=== PATIENT | female | born 1965 | race Two or more races ===

== ENCOUNTER 2019-10-03 19:17 | Emergency (ER) | payer MEDICAID ==
[2019-10-03] MEDS ORDERED: Acetaminophen/oxyCODONE 325-5 MG Tab PO ONE (22:04)
[2019-10-03] MEDS ORDERED: Ibuprofen 600 MG Tab PO ONE (22:04)
[2019-10-03] MEDS ORDERED: Clindamycin HCl 150 MG Cap PO ONE (22:05)
--- NOTE | 2019-10-03 22:08 | EDM.PDOC ---
ED HPI GENERAL MEDICAL PROBLEM - General Chief Complaint: ENT Problem Stated Complaint: TOOTH PAIN Time Seen by Provider: 10/03/19 21:40 Source of Information: Reports: Patient History Limitations: Reports: No Limitations - History of Present Illness INITIAL COMMENTS - FREE TEXT/NARRATIVE: 84-year-old female presents to the ED with a dental infection right upper maxilla. Pain is been present for about 3 days. She has numerous dental caries. This tooth has become infected once in the past. She believes she was on Augmentin twice daily for this. Current pain is constant throbbing and interfering with her ability to sleep and to eat. Very minimal relief with Tylenol and Motrin. Of note blood pressure is elevated at 197/87 due to pain I believe. Onset: Gradual Onset Date: 09/29/19 Duration: Day(s):, Getting Worse Location: Reports: Face (Till infection right upper maxilla.) Quality: Reports: Ache, Throbbing, Other Severity: Severe (Constant throbbing pain) Improves with: Reports: None ( at a 10) Worsens with: Reports: None Context: Reports: Other (On multiple dental caries with previous dental infection.). Denies: Activity, Exercise, Lifting, Sick Contact, Trauma Associated Symptoms: Reports: Loss of Appetite, Other (Right hemifacial swelling starting this morning). 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, NSAIDS (Motrin) Right Upper Tooth/Teeth Pain Score (Numeric/FACES): 10 - Related Data Allergies Allergy/AdvReac Type Severity Reaction Status Date / Time No Known Allergies Allergy Verified 10/03/19 20:58 Home Meds: Home Meds Clindamycin HCl 300 mg PO TID #24 capsule 10/03/19 [Rx] Furosemide [Lasix] 0 mg PO DAILY 10/03/19 [History] lisinopriL [Lisinopril] 20 mg PO DAILY 10/03/19 [History] oxyCODONE HCl/Acetaminophen [Percocet 5-325 mg Tablet] 1 - 2 each PO Q4H PRN # 16 tablet 10/03/19 [Rx] Past Medical History HEENT History: Reports: Other (See Below) Other HEENT History: Dental Caries Cardiovascular History: Reports: Hypertension Respiratory History: Reports: None 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: Musculoskeletal History: Reports: None Neurological History: Reports: None Psychiatric History: Reports: Anxiety Endocrine/Metabolic History: Reports: Obesity/BMI 30+ Hematologic History: Reports: None Immunologic History: Reports: None Oncologic (Cancer) History: Reports: None Dermatologic History: Reports: None - Infectious Disease History Infectious Disease History: Reports: None - Past Surgical History GI Surgical History: Reports: Cholecystectomy Female Surgical History: Reports: Hysterectomy Social & Family History - Tobacco Use Smoking Status *Q: Never Smoker - Caffeine Use Caffeine Use: Reports: Soda - Recreational Drug Use Recreational Drug Use: No - Living Situation & Occupation Living situation: Reports: Occupation: Unemployed ED ROS ENT - Review of Systems Review Of Systems: See Below Constitutional: Reports: Fatigue, Decreased Appetite (Not sleeping). Denies: Fever, Chills, Malaise HEENT: Reports: Dental Pain (Upper maxillary pain with referred pain up below her right eye right facial cheek over the maxillary sinus and some feeling of pain in her upper neck and towards her right ear.), Ear Pain (Side) Respiratory: Reports: No Symptoms Cardiovascular: Reports: Chest Pain, Blood Pressure Problem (Complains of pressure in her upper anterior chest. She is concerned about her blood pressure. Hypertension. Blood pressure is elevated 179/87 at this time.). Denies: Claudication ( Patient reassured it will come down once her pain is controlled.), Dyspnea on Exertion, Lightheadedness, Orthopnea Endocrine: Reports: No Symptoms GI/Abdominal: Reports: Decreased Appetite, Nausea : Reports: No Symptoms (The intensity of the pain) Musculoskeletal: Reports: No Symptoms Skin: Reports: Erythema Neurological: Reports: No Symptoms Psychiatric: Reports: No Symptoms Hematologic/Lymphatic: Reports: No Symptoms Immunologic: Reports: No Symptoms ED EXAM, ENT - Physical Exam Exam: See Below Exam Limited By: No Limitations General Appearance: Alert, WD/WN, Anxious, Moderate Distress, Other ( Temperature is 36.8. Heart rate is 66 in sinus respiratory to 16 O2 sats 96% room air BP mildly elevated 179/87. Patient has chronic hypertension problem.) Eye Exam: Bilateral Eye: Normal Inspection Ears: Normal TMs Nose: Normal Inspection, Normal Mucousa Mouth/Throat: Normal Gums (Of the gingiva around the second and first upper bicuspid teeth.), Normal Lips, Normal Oropharynx, Dental Abcess (Patient has a gingiva inflammation erythema over her first bicuspid tooth right upper maxilla. The second bicuspid tooth has a fractured crown posteriorly. No abscess is evident that would benefit from drainage.), Dental Tenderness (Upper first molar tooth.). No: Normal Teeth (Numerous dental caries are evident.), Hoarse Voice, Lip Swelling, Lip Ulcers, Peritonsillar Mass, Pharyngeal Erythema , Throat Swelling, Tongue Swelling Head: Atraumatic, Normocephalic Neck: Normal Inspection, Supple, Non-Tender, Full Range of Motion. No: Lymphadenopathy (L), Lymphadenopathy (R) Respiratory/Chest: No Respiratory Distress, Lungs Clear, Normal Breath Sounds, No Accessory Muscle Use Cardiovascular: Normal Peripheral Pulses, Regular Rate, Rhythm, No Edema, No Gallop, No Murmur, No Rub Course - Vital Signs Last Recorded V/S: Last Vital Signs Temp 36.8 C 10/03/19 20:56 Pulse 66 10/03/19 20:56 Resp 16 10/03/19 20:56 BP 179/87 H 10/03/19 20:56 Pulse Ox 96 10/03/19 20:56 - Orders/Labs/Meds Meds: Medications Discontinued Medications Generic Name Dose Route Start Last Admin Trade Name Amrit PRN Reason Stop Dose Admin Clindamycin HCl 450 mg 10/03/19 22:05 Cleocin PO 10/03/19 22:06 ONETIME ONE Ibuprofen 600 mg 10/03/19 22:04 Motrin PO 10/03/19 22:05 ONETIME ONE Oxycodone/Acetaminophen 2 tab 10/03/19 22:04 Percocet 325-5 Mg PO 10/03/19 22:05 ONETIME ONE - Radiology Interpretation Free Text/Narrative:: T4-year-old female presents to the ED with dental pain right upper maxilla. Source of pain appears to be coming from the first and second bicuspid teeth. There is secondary infection involving the right facial cheek over the maxillary sinus. Ears normal. Plan given clindamycin 450 mg in the ED tonight. Drugstore is closed. Percocet 2 tablets 5 325 mg strength by mouth for pain relief. She will continue Motrin and Aleve for pain and inflammation relief. Prescription written for Percocet 5/325 mg tablets 1 or 2 every 4-6 hours for pain relief as needed for the next 3 days. 12 tablets provided. Clindamycin 300 mg 3 times daily for the next 8 days to clear up infection. Follow-up with dentist as soon as possible. Departure - Departure Time of Disposition: 22:05 Disposition: Home, Self-Care 01 Condition: Fair Clinical Impression: Infected dental carries - Discharge Information *PRESCRIPTION DRUG MONITORING PROGRAM REVIEWED*: Not Applicable *COPY OF PRESCRIPTION DRUG MONITORING REPORT IN PATIENT ANN: Not Applicable Prescriptions: Clindamycin HCl 300 mg PO TID #24 capsule oxyCODONE HCl/Acetaminophen [Percocet 5-325 mg Tablet] 1 - 2 each PO Q4H PRN # 16 tablet PRN Reason: pain relief. Instructions: Dental Abscess, [id number] Referrals: PCP,Not In Area [Primary Care Provider] - Forms: ED Department Discharge Additional Instructions: Evaluation in the emergency room today in regards to dental infection right upper first bicuspid tooth with secondary spread of infection to the right facial cheek. Treatment is to be clindamycin 450 mg started in the ED by mouth. This will need to be followed by clindamycin 300 mg tablets 3 times daily for the next 8 days starting tomorrow morning. Continue Motrin 600 mg every 6 hours or Aleve 2 tablets every 8 hours to reduce pain and inflammation until the antibiotics become effective. This is usually at least 48 hours. Percocet tabs 5/325 mg 1 or 2 every 4-6 hours for pain not relieved by Aleve or Motrin alone. Again these tablets will likely be required for about 2-1/2 to 3 days before the pain settles down. Obviously dental care is required and I would suggest seeking out a dentist as soon as possible. Sepsis Event Note - Evaluation Sepsis Screening Result: No Definite Risk - Focused Exam Vital Signs: Vital Signs Temp Pulse Resp BP Pulse Ox 10/03/19 20:56 36.8 C 66 16 179/87 H 96 Date Exam was Performed: 10/03/19 Time Exam was Performed: 22:08
== END 2019-10-03 22:15 | disposition home or self-care (01) ==
LOC: JD.ED 19:17
DX: K02.9 Dental caries, unspecified (principal); I10 Essential (primary) hypertension; E66.9 Obesity, unspecified; Z68.36 Body mass index [BMI] 36.0-36.9, adult
CPT/HCPCS: 99282; A9270; 99283

== ENCOUNTER 2020-11-28 07:24 | Day surgery (SDC) | payer MEDICAID ==
[~2020-11-28 07:24] MED LIST: Lactated Ringers 1,000 ML IV SCH; Lidocaine 1% 4 ML ONE; Lidocaine 1%/Sod Bicarbonate in NS 8.4% 1 ML Syringe IDERM PRN; Midazolam 1 MG/ML 2 ML SDV ONE; Propofol 200 MG/20 ML SDV ONE; Rocuronium 50 MG/5 ML Vial ONE; Sodium Chloride 0.9% 10 ML Syringe FLUSH PRN; ceFAZolin 1 GM Vial ONE; fentaNYL 250 MCG/5 ML SDV ONE
[2020-11-28] MEDS ORDERED: Lidocaine 1% with EPINEPHrine 1:100,000 10 ML MDV ONE (07:37)
[2020-11-28] MEDS ORDERED: Bupivacaine 0.5%/EPINEPHrine 1:200,000 50 ML MDV ONE (07:38)
--- NOTE | 2020-11-28 07:44 | PCM.PREANE ---
Preanesthetic Assessment - Anesthesia/Transfusion/Family Hx Anesthesia History: Prior Anesthesia Without Reaction Family History of Anesthesia Reaction: No Transfusion History: No Prior Transfusion(s) - Review of Systems General: No Symptoms Pulmonary: No Symptoms Cardiovascular: No Symptoms Gastrointestinal: No Symptoms Neurological: No Symptoms Other: Reports: None - Physical Assessment NPO Status Date: 11/27/20 NPO Status Time: 17:00 ASA Class: 2 Mental Status: Alert & Oriented x3 Airway Class: Mallampati = 2 Dentition: Reports: Broken Tooth/Teeth (back bottom left) ROM/Head Extension: Full Lungs: Clear to Auscultation, Normal Respiratory Effort Cardiovascular: Regular Rate, Regular Rhythm - Allergies Allergies/Adverse Reactions: Allergies Allergy/AdvReac Type Severity Reaction Status Date / Time cat dander Allergy Other Verified 11/27/20 15:43 grass pollen Allergy Other Verified 11/27/20 15:43 - Anesthesia Plan Beta Evans: Metoprolol Med Last Dose Date: 11/28/20 Med Last Dose Time: 06:20 - Acknowledgements Anesthesia Type Planned: General Anesthesia Pt an Appropriate Candidate for the Planned Anesthesia: Yes Alternatives and Risks of Anesthesia Discussed w Pt/Guardian: Yes Pt/Guardian Understands and Agrees with Anesthesia Plan: Yes PreAnesthesia Questionnaire HEENT History: Reports: Other (See Below) Other HEENT History: Dental Caries, sinusitis Cardiovascular History: Reports: High Cholesterol, Hypertension, Other (See Below) Other Cardiovascular History: palpitations Respiratory History: Reports: Sleep Apnea, Other (See Below) Other Respiratory History: snoring, CPAP Gastrointestinal History: Reports: Other (See Below) Other Gastrointestinal History: dysphagia Genitourinary History: Reports: None 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: , Other (See Below) Other OB/BYN History: postmenopausal, vaginal dryness Musculoskeletal History: Reports: Other (See Below) Other Musculoskeletal History: bilateral carpal tunnel syndrome Neurological History: Reports: None Psychiatric History: Reports: Anxiety Endocrine/Metabolic History: Reports: Obesity/BMI 30+ Hematologic History: Reports: None Immunologic History: Reports: None Oncologic (Cancer) History: Reports: None Dermatologic History: Reports: Other (See Below) Other Dermatologic History: hidradenitis supprurativa - Infectious Disease History Infectious Disease History: Reports: None - Past Surgical History Head Surgeries/Procedures: Reports: None Cardiovascular Surgical History: Reports: None Respiratory Surgical History: Reports: None GI Surgical History: Reports: Cholecystectomy, Colonoscopy, EGD Female Surgical History: Reports: Hysterectomy Male Surgical History: Reports: None Endocrine Surgical History: Reports: None Neurological Surgical History: Reports: None Musculoskeletal Surgical History: Reports: None Oncologic Surgical History: Reports: None Dermatological Surgical History: Reports: None - SUBSTANCE USE Tobacco Use Status *Q: Never Tobacco User Recreational Drug Use History: No - HOME MEDS Home Medications: Home Meds Clindamycin Phosphate [Cleocin T 1% Gel] 1 dose TOP BID 11/27/20 [History] Metoprolol Succinate 25 mg PO DAILY 11/27/20 [History] Omeprazole Magnesium [Prilosec Otc] 20 mg PO DAILY 11/27/20 [History] estradioL [Estrace 0.01% Vaginal Crm] 1 dose VAG ASDIRECTED PRN 11/27/20 [History] hydroCHLOROthiazide [Hydrochlorothiazide] 25 mg PO DAILY 11/27/20 [History] lisinopriL [Lisinopril] 20 mg PO DAILY 11/27/20 [History] - CURRENT (IN HOUSE) MEDS Current Meds: Current Medications Lactated Ringer's (Ringers, Lactated) 1,000 mls @ 125 mls/hr IV ASDIRECTED NADJA Stop: 11/28/20 23:00 Lidocaine/Sodium Bicarbonate (Lidocaine 1%/Sod Bicarbonate In Ns 8.4% 1 Ml Syringe) 0.25 ml IDERM ONETIME PRN PRN Reason: Prior to IV Start Stop: 11/28/20 18:00 Sodium Chloride (Sodium Chloride 0.9% 10 Ml Syringe) 10 ml FLUSH ASDIRECTED PRN PRN Reason: Keep Vein Open Stop: 11/28/20 18:00 Discontinued Medications Cefazolin Sodium (Cefazolin 1 Gm Vial) Confirm Administered Dose 2 gm .ROUTE .STK-MED ONE Stop: 11/28/20 07:07 Fentanyl (Fentanyl 250 Mcg/5 Ml Sdv) Confirm Administered Dose 250 mcg .ROUTE .STK-MED ONE Stop: 11/28/20 06:56 Lidocaine HCl (Xylocaine-Mpf 1%) Confirm Administered Dose 4 mls @ as directed .ROUTE .STK-MED ONE Stop: 11/28/20 06:56 Midazolam HCl (Midazolam 1 Mg/Ml 2 Ml Sdv) Confirm Administered Dose 2 mg .ROUTE .STK-MED ONE Stop: 11/28/20 06:56 Propofol (Propofol 200 Mg/20 Ml Sdv) Confirm Administered Dose 200 mg .ROUTE .STK-MED ONE Stop: 11/28/20 06:55 Rocuronium [place] (Rocuronium 50 Mg/5 Ml Vial) Confirm Administered Dose 50 mg .ROUTE .STK-MED ONE Stop: 11/28/20 06:56
[2020-11-28] MEDS ORDERED: Acetaminophen 325 MG Tab PO ONE ×2 (07:47→08:00)
[2020-11-28] MEDS ORDERED: Gabapentin 300 MG Cap PO ONE (08:00)
[2020-11-28] MEDS ORDERED: Lactated Ringers 1,000 ML ONE (08:34)
[2020-11-28] MEDS ORDERED: diphenhydrAMINE 50 MG/ML SDV IVPUSH PRN (08:38)
[2020-11-28] MEDS ORDERED: Ondansetron 4 MG/2 ML SDV IVPUSH PRN (08:38)
[2020-11-28] MEDS ORDERED: fentaNYL 100 MCG/2 ML SDV IVPUSH PRN (08:38)
[2020-11-28] MEDS ORDERED: HYDROmorphone 0.5 MG/0.5 ML Syringe IVPUSH PRN (08:38)
[2020-11-28] MEDS ORDERED: Pantoprazole 40 MG Tab.CR PO SCH (09:00)
[2020-11-28] MEDS ORDERED: HYDROmorphone 0.5 MG/0.5 ML Syringe ONE ×2 (09:23→09:37)
[2020-11-28] MEDS ORDERED: Ondansetron 4 MG/2 ML SDV ONE (09:38)
[2020-11-28] MEDS ORDERED: fentaNYL 100 MCG/2 ML SDV ONE (09:46)
[2020-11-28] MEDS ORDERED: Ketorolac 30 MG/ML SDV ONE (10:08)
--- NOTE | 2020-11-28 10:26 | PCM.OPNOTE ---
- General Post-Op/Procedure Note Date of Surgery/Procedure: 11/28/20 Operative Procedure(s): Laparoscopic ventral incisional hernia repair with mesh Findings: Epigastric incisional hernia in the area of her previous open cholecystectomy Pre Op Diagnosis: Ventral incisional hernia Post-Op Diagnosis: same Anesthesia Technique: General ET Tube, Local Primary Surgeon: Maria E Brothers Anesthesia Provider: Isabel Quiñones Pathology: none Fluid Replacement, Intraop: 1,700 Output, Urine Amount: 0 EBL in mLs: 5 Complications: none apparent Condition: Good
--- NOTE | 2020-11-28 10:28 | PCM.PRNOTE ---
- Free Text/Narrative Note: Operative Report Date of surgery: November Preoperative diagnosis: Ventral incisional hernia Postoperative diagnosis: same Surgeon: Dr. Maria E Brothers Anesthesia: General ET with local Aircraft Engine Specialist: Isabel Quiñones CRNA Estimated blood loss: 5 mL IV fluids: 1700 mL Urine output: None Drains and lines: None Indication for the procedure: The patient is a 55-year-old lady who presented to my office with complaint of abdominal pain and bulge in the epigastric area. The patient reports having a previous open cholecystectomy many years ago. She underwent preoperative CT scanning, which revealed an incisional ventral hernia. I discussed a procedure of a laparoscopic ventral incisional hernia repair with mesh with the patient. Risks of infection, bleeding and mesh complication was reviewed, and written consent was obtained Description of the procedure: The patient presented to the outpatient holding area on the day for procedure history and physical were verified and the consent was present and on the chart. She was taken back to the operating room and placed in supine position on the operating table. SCD boots were placed and functional prior to the start of the procedure. The patient received preoperative antibiotics as per SCIP protocol. The patient had successful induction of general anesthesia and was intubated without difficulty. The patient's left arm was tucked and the pressure points were padded. The patient was prepped and draped in standard surgical fashion and a timeout was performed. The abdomen was draped with Ioban to begin. A 5 mm incision was then made in the left upper quadrant just under the subcostal margin. A 5 mm port was then inserted into the abdomen with the Visiport technique. The abdomen was insufflated to 15 mmHg. There was no evidence of any injury in the area where we had entered the abdomen. A TAP block was then performed with mixed 1% lidocaine with epinephrine and 0.5% bupivacaine with epinephrine. We then proceeded to survey the area of hernia. A 5 mm port was inserted in the left lower quadrant. We proceeded to lyse the adhesions to the right upper quadrant with the Ligasure. The epigastrium was evaluated and the falciform ligament was removed to evaluate the fascia. A linear defect was noted in the epigastrium to the right of the midline, measuring approximately 7.5cm. We then used a spinal needle to size the hernia. In order to cover the area where the abdominal wall muscles were not joined, a 11.5cm circular mesh was selected. Castella-Nick suture were affixed in all 4 quadrants of the mesh. A left sided 12 mm port was then placed under direct visualization. The mesh was then soaked in saline, rolled and placed through this port into the abdomen. The mesh was then unfurled within the abdomen and the fixation site was marked with the spinal needle. A small stab incision was made in the area where we had selected. An Endo Close suture passer was then passed into the abdomen and the tails of the Castella-Nick suture were brought to the abdominal wall and secured. Care was taken to not place the mesh too high, as it was in the are of the diaphragm on the superior aspect. We then proceeded to do the same with the four remaining sutures in all four quadrants of the mesh. A SecureStrap Ethicon tacker was then used to circumferentially tack the to the abdominal wall. The 12mm port was removed and the fascia closed with an 0-Vicryl suture with the Endoclose device. The abdomen was then desufflated and the ports were removed. The stay sutures were tied down to the abdominal wall and the subcutaneous tissue was released as necessary for good closure. The incision sites were then closed with 4-0 Monocryl suture. Dermabond surgical glue were used to cover the port sites and stab incisions. The patient tolerated the procedure well and was transported to the PACU in stable condition. All sponge and needle counts correct. The Jacob catheter was removed at the conclusion of the case Complications: None apparent. Disposition: Stable to PACU Maria E Brothers MD General Surgery
--- NOTE | 2020-11-28 10:46 | PCM.POSTAN ---
POST ANESTHESIA ASSESSMENT - MENTAL STATUS Mental Status: Alert, Oriented - VITAL SIGNS Vital Signs: Last Vital Signs Temp 36.7 C 11/28/20 08:02 Pulse 62 11/28/20 07:45 Resp 16 11/28/20 07:45 BP 116/64 11/28/20 07:45 Pulse Ox 96 11/28/20 07:45 - RESPIRATORY Respiratory Status: Respiratory Rate WNL, Airway Patent, O2 Saturation Stable - CARDIOVASCULAR CV Status: Pulse Rate WNL, Blood Pressure Stable - GASTROINTESTINAL GI Status: No Symptoms - PAIN Pain Score: 0 - POST OP HYDRATION Hydration Status: Adequate & Stable
[2020-11-28] MEDS ORDERED: ePHEDrine 50 MG/ML SDV IVPUSH ONE (11:02)
[2020-11-28] MEDS ORDERED: Acetaminophen/HYDROcodone 325-5 MG Tab PO SCH (11:38)
--- NOTE | 2020-11-28 11:39 | PCM48HPAN ---
Post Anesthesia Note - EVALUATION WITHIN 48HRS OF ANESTHETIC Vital Signs in Normal Range: Yes (PACU nuses did have to give 5mg Ephedrine for low BP) Patient Participated in Evaluation: Yes Respiratory Function Stable: Yes Airway Patent: Yes Cardiovascular Function Stable: Yes Hydration Status Stable: Yes Pain Control Satisfactory: Yes Nausea and Vomiting Control Satisfactory: Yes Mental Status Recovered: Yes Vital Signs: Last Vital Signs Temp 36.7 C 11/28/20 11:25 Pulse 75 11/28/20 11:25 Resp 12 11/28/20 11:25 BP 109/60 11/28/20 11:25 Pulse Ox 95 11/28/20 11:32
== END 2020-11-28 14:09 | disposition home or self-care (01) ==
LOC: JD.SDS 07:24
PROVIDERS: ATTEND Surgery
DX: K43.2 Incisional hernia without obstruction or gangrene (principal); I10 Essential (primary) hypertension; G47.33 Obstructive sleep apnea (adult) (pediatric); E78.00 Pure hypercholesterolemia, unspecified; E66.9 Obesity, unspecified; Z68.36 Body mass index [BMI] 36.0-36.9, adult; Z91.09 Other allergy status, other than to drugs and biological substances; Z79.899 Other long term (current) drug therapy; Z98.890 Other specified postprocedural states
CPT/HCPCS: 36415; 49654; 80048; 85025; A9270; J0690; J1170; J1885; J2250; J2405; J2704; J3010; J3490; J7120; 00790; C1781

== ENCOUNTER 2022-01-18 21:59 | Emergency (ER) | payer BC, MEDICAID ==
[2022-01-18] MEDS ORDERED: Famotidine 20 MG Tab PO ONE (22:15)
[2022-01-18] MEDS ORDERED: Ondansetron 4 MG Tab.DIS PO ONE (22:15)
[2022-01-18 22:51] LABS: ESTIMATED GFR > 60 mL/min (>60)
[2022-01-18] MEDS ORDERED: Potassium Chloride 20 MEQ Tab.ER PO ONE (23:08)
== END 2022-01-18 23:15 | disposition home or self-care (01) ==
LOC: JD.ED 21:59
DX: R10.30 Lower abdominal pain, unspecified (principal); R19.7 Diarrhea, unspecified; E78.00 Pure hypercholesterolemia, unspecified; I10 Essential (primary) hypertension; E66.9 Obesity, unspecified; Z68.30 Body mass index [BMI] 30.0-30.9, adult; Z91.09 Other allergy status, other than to drugs and biological substances; Z91.048 Other nonmedicinal substance allergy status; Z79.899 Other long term (current) drug therapy
CPT/HCPCS: 36415; 80053; 83690; 85025; 99284; A9270; 99283

== ENCOUNTER 2022-04-25 18:24 | Emergency (ER) | payer BC | END 2022-04-25 19:15 | LOC: JD.ED 18:24 | DX: Z53.21 Procedure and treatment not carried out due to patient leaving prior to being seen by health care provider (principal) ==

== ENCOUNTER 2022-11-15 21:13 | Emergency (ER) | payer MEDICAID ==
[2022-11-15] MEDS: Ketorolac 30 MG/ML SDV IM ONE (22:11)
[2022-11-15] MEDS: Ondansetron 4 MG Tab.DIS PO ONE (22:16)
[2022-11-15 22:53] LABS: CORONAVIRUS COVID-19 NAA POSITIVE (NEGATIVE)
== END 2022-11-15 23:20 | disposition home or self-care (01) ==
LOC: JD.ED 21:13
DX: U07.1 COVID-19 (principal); I10 Essential (primary) hypertension; E66.9 Obesity, unspecified; Z91.09 Other allergy status, other than to drugs and biological substances; Z91.048 Other nonmedicinal substance allergy status; Z68.28 Body mass index [BMI] 28.0-28.9, adult; Z79.899 Other long term (current) drug therapy
CPT/HCPCS: 0240U; 71045; 71045-26; 96372; 99283; 99285; A9270-GY; J1885

== ENCOUNTER 2022-12-14 04:56 | Emergency (ER) | payer BC ==
[2022-12-14] MEDS ORDERED: LORazepam 0.5 MG Tab PO ONE (05:33)
[2022-12-14 05:53] LABS: BASOPHILS ABSOLUTE AUTO 0.03 K/mm3 (0.01-0.08); BASOPHILS PERCENT AUTO 0.5 % (0.1-1.2); EOSINOPHILS PERCENT AUTO 3.1 (0.7-5.8); HEMATOCRIT 43.8 % (34.1-44.9); HEMOGLOBIN 14.5 gm/dl (11.2-15.7); IMMATURE GRAN ABSOLUTE AUTO 0.01 K/mm3 (0.00-0.10); IMMATURE GRAN PERCENT AUTO 0.2 % (<=1.0); LYMPHOCYTES ABSOLUTE AUTO 1.62 K/mm3 (1.18-3.74); MEAN CORPUSCULAR HEMOGLOBIN 29.1 pg (25.6-32.2); MEAN CORPUSCULAR HGB CONC 33.1 g/dl (32.2-35.5); MEAN CORPUSCULAR VOLUME 87.8 fl (79.4-94.8); MEAN PLATELET VOLUME 9.3 fl (9.4-12.3); MONOCYTES ABSOLUTE AUTO 0.42 K/mm3 (0.24-0.36); MONOCYTES PERCENT AUTO 6.5 % (4.7-12.5); NEUTROPHILS PERCENT AUTO 64.7 % (34.0-71.1); PLATELET COUNT,PLT 268 K/mm3 (182-369); RED BLOOD CELL COUNT 4.99 M/mm3 (3.98-5.22); WHITE BLOOD CELL COUNT,WBC 6.48 K/mm3 (3.98-10.04)
[2022-12-14 06:15] LABS: A/G RATIO 0.9 (1-2); ALBUMIN 3.6 g/dl (3.4-5.0); ANION GAP 12.6 (5-15); BILIRUBIN TOTAL 0.5 mg/dL (0.2-1.0); CALCIUM 8.9 mg/dL (8.5-10.1); CREATININE 0.8 mg/dL (0.55-1.02); EST CRCL DRUG DOSING (CG) 57.07 mL/min; POTASSIUM,K 3.6 mEq/L (3.5-5.1); PROTEIN TOTAL,TP 7.7 g/dl (6.4-8.2)
== END 2022-12-14 07:29 | disposition home or self-care (01) ==
LOC: JD.ED 04:56
DX: R06.4 Hyperventilation (principal); F41.9 Anxiety disorder, unspecified; I10 Essential (primary) hypertension; E66.9 Obesity, unspecified; Z86.16 Personal history of COVID-19; Z91.09 Other allergy status, other than to drugs and biological substances; Z91.048 Other nonmedicinal substance allergy status; Z68.34 Body mass index [BMI] 34.0-34.9, adult
CPT/HCPCS: 36415; 80053; 83880; 84484; 85025; 85379; 99284; A9270; 99283

== ENCOUNTER 2024-05-06 09:19 | Emergency (ER) | payer BC ==
[2024-05-06 11:19] LABS: BASOPHILS PERCENT AUTO 0.4 % (0.0-1.0); EOSINOPHILS ABSOLUTE AUTO 0.2 K/mm3 (0.0-0.4); HEMATOCRIT 44.9 % (37.0-47.0); HEMOGLOBIN 15.3 gm/dl (12.0-16.0); IMMATURE GRAN ABSOLUTE AUTO 0.02 K/mm3 (0.00-0.05); IMMATURE GRAN PERCENT AUTO 0.3 % (0.0-0.4); LYMPHOCYTES PERCENT AUTO 26.7 % (24.0-44.0); MEAN CORPUSCULAR HEMOGLOBIN 29.5 pg (28.0-32.0); MEAN CORPUSCULAR HGB CONC 34.1 g/dl (32.0-36.0); MEAN CORPUSCULAR VOLUME 86.5 fl (83.0-99.0); MEAN PLATELET VOLUME 9.3 fl (9.4-12.3); MONOCYTES ABSOLUTE AUTO 0.4 K/mm3 (0.0-0.8); MONOCYTES PERCENT AUTO 5.5 % (0.0-8.0); NEUTROPHILS ABSOLUTE AUTO 4.8 K/mm3 (1.8-7.7); NEUTROPHILS PERCENT AUTO 65.1 % (41.0-71.0); PLATELET COUNT,PLT 286 K/mm3 (150-400); RED BLOOD CELL COUNT 5.19 M/mm3 (4.10-5.30); WHITE BLOOD CELL COUNT,WBC 7.39 K/mm3 (3.9-11.3)
[2024-05-06] MEDS: Ketorolac 30 MG/ML SDV IVPUSH ONE (11:34)
[2024-05-06] MEDS: HYDROmorphone 0.5 MG/0.5 ML Syringe IVPUSH ONE (11:35)
[2024-05-06] MEDS: Sodium Chloride 0.9% 10 ML Syringe FLUSH PRN (11:38)
[2024-05-06 11:43] LABS: ANION GAP 13.1 (5-15); BILIRUBIN TOTAL 0.8 mg/dL (0.2-1.0); CALCIUM 8.9 mg/dL (8.5-10.1); CREATININE 0.6 mg/dL (0.55-1.02); EST CRCL DRUG DOSING (CG) 75.2 mL/min; POTASSIUM,K 3.1 mEq/L (3.5-5.1); PROTEIN TOTAL,TP 8.1 g/dl (6.4-8.2)
== END 2024-05-06 13:00 | disposition home or self-care (01) ==
LOC: JD.ED 09:19
DX: M54.12 Radiculopathy, cervical region (principal); I10 Essential (primary) hypertension; E66.9 Obesity, unspecified; Z68.37 Body mass index [BMI] 37.0-37.9, adult; Z86.16 Personal history of COVID-19; Z90.49 Acquired absence of other specified parts of digestive tract; Z79.899 Other long term (current) drug therapy; Z91.048 Other nonmedicinal substance allergy status
CPT/HCPCS: 36415; 72125; 80053; 84484; 85025; 93005; 96374; 96375; 99284; J1170; J1885; J3490; 93010

== ENCOUNTER 2024-09-30 16:37 | Emergency (ER) | payer BC ==
[2024-09-30 17:56] LABS: BASOPHILS PERCENT AUTO 0.3 % (0.0-1.0); EOSINOPHILS ABSOLUTE AUTO 0.3 K/mm3 (0.0-0.4); EOSINOPHILS PERCENT AUTO 3.7 % (0.0-6.0); HEMATOCRIT 43.9 % (37.0-47.0); HEMOGLOBIN 14.6 gm/dl (12.0-16.0); IMMATURE GRAN ABSOLUTE AUTO 0.01 K/mm3 (0.00-0.05); IMMATURE GRAN PERCENT AUTO 0.1 % (0.0-0.4); LYMPHOCYTES ABSOLUTE AUTO 2.2 K/mm3 (1.0-4.8); LYMPHOCYTES PERCENT AUTO 33.4 % (24.0-44.0); MEAN CORPUSCULAR HEMOGLOBIN 29.3 pg (28.0-32.0); MEAN CORPUSCULAR HGB CONC 33.3 g/dl (32.0-36.0); MEAN PLATELET VOLUME 9.5 fl (9.4-12.3); MONOCYTES ABSOLUTE AUTO 0.8 K/mm3 (0.0-0.8); NEUTROPHILS ABSOLUTE AUTO 3.4 K/mm3 (1.8-7.7); NEUTROPHILS PERCENT AUTO 50.5 % (41.0-71.0); PLATELET COUNT,PLT 256 K/mm3 (150-400); RED BLOOD CELL COUNT 4.99 M/mm3 (4.10-5.30); WHITE BLOOD CELL COUNT,WBC 6.68 K/mm3 (3.9-11.3)
[2024-09-30 18:30] LABS: A/G RATIO 0.8 (1-2); ALBUMIN 3.5 g/dl (3.4-5.0); BILIRUBIN TOTAL 0.4 mg/dL (0.2-1.0); BUN/CREATININE RATIO 11.4 (14-18); CALCIUM 8.7 mg/dL (8.5-10.1); CREATININE 0.7 mg/dL (0.55-1.02); EST CRCL DRUG DOSING (CG) 63.69 mL/min; PROTEIN TOTAL,TP 7.8 g/dl (6.4-8.2); TSH 4.344 uIU/mL (0.358-3.74)
[2024-09-30 18:55] LABS: T4 FREE 0.97 ng/dL (0.76-1.46)
[2024-09-30] MEDS: Potassium Chloride 20 MEQ Tab.ER PO ONE (19:52)
== END 2024-09-30 20:00 | disposition home or self-care (01) ==
LOC: JD.ED 16:37
DX: R00.2 Palpitations (principal); I10 Essential (primary) hypertension; E78.00 Pure hypercholesterolemia, unspecified; Z86.16 Personal history of COVID-19; Z91.048 Other nonmedicinal substance allergy status; Z91.018 Allergy to other foods; Z79.899 Other long term (current) drug therapy
CPT/HCPCS: 36415; 71045; 71045-26; 80053; 84439; 84443; 84484; 85025; 93005; 93246; 99285; A9270-GY

== ENCOUNTER 2024-10-18 01:54 | Emergency (ER) | payer BC ==
[2024-10-18] MEDS: Labetalol 100 MG/20 ML MDV IVPUSH ONE ×2 (02:42→03:32)
[2024-10-18 02:48] LABS: BASOPHILS ABSOLUTE AUTO 0.1 K/mm3 (0.0-0.2); BASOPHILS PERCENT AUTO 0.5 % (0.0-1.0); EOSINOPHILS ABSOLUTE AUTO 0.2 K/mm3 (0.0-0.4); EOSINOPHILS PERCENT AUTO 1.6 % (0.0-6.0); HEMATOCRIT 48.1 % (37.0-47.0); HEMOGLOBIN 16.3 gm/dl (12.0-16.0); IMMATURE GRAN ABSOLUTE AUTO 0.04 K/mm3 (0.00-0.05); IMMATURE GRAN PERCENT AUTO 0.3 % (0.0-0.4); LYMPHOCYTES ABSOLUTE AUTO 4.1 K/mm3 (1.0-4.8); LYMPHOCYTES PERCENT AUTO 32.3 % (24.0-44.0); MEAN CORPUSCULAR HEMOGLOBIN 29.5 pg (28.0-32.0); MEAN CORPUSCULAR HGB CONC 33.9 g/dl (32.0-36.0); MEAN PLATELET VOLUME 9.6 fl (9.4-12.3); MONOCYTES ABSOLUTE AUTO 0.8 K/mm3 (0.0-0.8); MONOCYTES PERCENT AUTO 6.6 % (0.0-8.0); NEUTROPHILS ABSOLUTE AUTO 7.4 K/mm3 (1.8-7.7); NEUTROPHILS PERCENT AUTO 58.7 % (41.0-71.0); PLATELET COUNT,PLT 334 K/mm3 (150-400); RED BLOOD CELL COUNT 5.53 M/mm3 (4.10-5.30); WHITE BLOOD CELL COUNT,WBC 12.65 K/mm3 (3.9-11.3)
[2024-10-18 03:08] LABS: A/G RATIO 0.9 (1-2); ALANINE AMINOTRANSFERASE,ALT 46 U/L (14-59); ALBUMIN 3.9 g/dl (3.4-5.0); ALKALINE PHOSPHATASE 130 U/L (46-116); ANION GAP 12.7 (5-15); ASPARTATE AMNIOTRANSFERASE,AST 24 U/L (15-37); BILIRUBIN TOTAL 0.6 mg/dL (0.2-1.0); BLOOD UREA NITROGEN,BUN 14 mg/dL (7-18); BUN/CREATININE RATIO 17.5 (14-18); CALCIUM 9.2 mg/dL (8.5-10.1); CARBON DIOXIDE,CO2 28 mEq/L (21-32); CHLORIDE,CL 103 mEq/L (98-107); CREATININE 0.8 mg/dL (0.55-1.02); EST CRCL DRUG DOSING (CG) 55.73 mL/min; ESTIMATED GFR 86 mL/min (>60); GLUCOSE RANDOM 114 mg/dL (70-99); MAGNESIUM 1.8 mg/dL (1.8-2.4); POTASSIUM,K 2.7 mEq/L (3.5-5.1); PROTEIN TOTAL,TP 8.2 g/dl (6.4-8.2); SODIUM,NA 141 mEq/L (136-145)
[2024-10-18 03:27] LABS: TROPONIN I HIGH SENSITIVITY < 4 pg/mL (<=51)
[2024-10-18 03:27] LABS: BARBITURATE SCREEN,URINE NEGATIVE (CUTOFF=200); BENZODIAZEPINES SCREEN,URINE NEGATIVE (CUTOFF=150); BUPRENORPHINE SCREEN,URINE NEGATIVE (CUTOFF=10); METHADONE SCREEN, URINE NEGATIVE (CUTOFF=200); METHAMPHETAMINES SCREEN, URINE NEGATIVE (CUTOFF=500); OXYCODONE SCREEN,URINE NEGATIVE (CUT0FF=100); THC SCREEN,URINE 20 NG/ML NEGATIVE (CUTOFF=50)
[2024-10-18 03:29] LABS: AMPHETAMINES SCREEN, URINE NEGATIVE (CUTOFF=500)
[2024-10-18] MEDS: Sodium Chloride 0.9% 10 ML Syringe FLUSH PRN (03:46)
[2024-10-18] MEDS: Iopamidol 755 Mg/ML 100 ML Bottle IVPUSH ONE (03:48)
[2024-10-18] MEDS: Sodium Chloride 0.9% 100 ML IV SCH (03:48)
[2024-10-18] MEDS: Magnesium Sulfat/D5W 1GM/100ML 1 GM in Premix Bag 1 BAG IV ONE (03:54)
[2024-10-18] MEDS: Potassium Bicarbonate/Cit Ac 20 MEQ Effervescent Tab PO ONE (03:56)
[2024-10-18 06:13] LABS: A/G RATIO 0.9 (1-2); ALBUMIN 3.7 g/dl (3.4-5.0); ANION GAP 12.8 (5-15); BILIRUBIN TOTAL 0.6 mg/dL (0.2-1.0); BUN/CREATININE RATIO 17.1 (14-18); CALCIUM 8.8 mg/dL (8.5-10.1); CREATININE 0.7 mg/dL (0.55-1.02); EST CRCL DRUG DOSING (CG) 63.69 mL/min; MAGNESIUM 2.4 mg/dL (1.8-2.4); POTASSIUM,K 3.8 mEq/L (3.5-5.1); PROTEIN TOTAL,TP 7.8 g/dl (6.4-8.2)
== END 2024-10-18 07:06 | disposition home or self-care (01) ==
LOC: JD.ED 01:54
DX: E87.6 Hypokalemia (principal); E83.42 Hypomagnesemia; I10 Essential (primary) hypertension; E78.00 Pure hypercholesterolemia, unspecified; Z91.048 Other nonmedicinal substance allergy status; Z91.018 Allergy to other foods; Z79.899 Other long term (current) drug therapy; Z86.16 Personal history of COVID-19; Z90.49 Acquired absence of other specified parts of digestive tract
CPT/HCPCS: 36415; 71045; 71275; 80053; 80306; 80307; 83735; 83880; 84484; 85025; 93005; 96365; 96375; 96376; 99285; A9270; J1920; J3475; Q9967; 93010; 99284

== ENCOUNTER 2025-03-12 19:25 | Emergency (ER) | payer BC ==
[2025-03-12] MEDS ORDERED: Sodium Chloride 0.9% 10 ML Syringe FLUSH PRN (19:58)
[2025-03-12 20:28] LABS: BASOPHILS ABSOLUTE AUTO 0.0 K/mm3 (0.0-0.2); BASOPHILS PERCENT AUTO 0.4 % (0.0-1.0); EOSINOPHILS ABSOLUTE AUTO 0.2 K/mm3 (0.0-0.4); EOSINOPHILS PERCENT AUTO 2.3 % (0.0-6.0); IMMATURE GRAN ABSOLUTE AUTO 0.02 K/mm3 (0.00-0.05); IMMATURE GRAN PERCENT AUTO 0.3 % (0.0-0.4); LYMPHOCYTES ABSOLUTE AUTO 2.3 K/mm3 (1.0-4.8); LYMPHOCYTES PERCENT AUTO 29.8 % (24.0-44.0); MEAN PLATELET VOLUME 9.1 fl (9.4-12.3); MONOCYTES ABSOLUTE AUTO 0.6 K/mm3 (0.0-0.8); MONOCYTES PERCENT AUTO 7.4 % (0.0-8.0); NEUTROPHILS ABSOLUTE AUTO 4.6 K/mm3 (1.8-7.7); NEUTROPHILS PERCENT AUTO 59.8 % (41.0-71.0); NRBC ABSOLUTE 0.00 (0.00-0.02); NRBC PERCENT 0.0 % (0.0-0.2); PLATELET COUNT,PLT 271 K/mm3 (150-400); RED BLOOD CELL COUNT 4.92 M/mm3 (4.10-5.30); WHITE BLOOD CELL COUNT,WBC 7.66 K/mm3 (3.9-11.3)
[2025-03-12 21:01] LABS: A/G RATIO 0.9 (1-2); ALANINE AMINOTRANSFERASE,ALT 75.0 U/L (14-59); ASPARTATE AMNIOTRANSFERASE,AST 46.0 U/L (15-37); BILIRUBIN TOTAL 0.4 mg/dL (0.2-1.0); BLOOD UREA NITROGEN,BUN 12.0 mg/dL (7-18); CARBON DIOXIDE,CO2 28.0 mEq/L (21-32); CHLORIDE,CL 105.0 mEq/L (98-107); CREATININE 0.9 mg/dL (0.55-1.02); EST CRCL DRUG DOSING (CG) 59.55 mL/min; ESTIMATED GFR 75.0 mL/min (>60); GLUCOSE RANDOM 108.0 mg/dL (70-99); PHOSPHORUS 3.6 mg/dL (2.6-4.7); POTASSIUM,K 3.2 mEq/L (3.5-5.1); PROTEIN TOTAL,TP 7.3 g/dl (6.4-8.2); SODIUM,NA 141.0 mEq/L (136-145); TROPONIN I HIGH SENSITIVITY 5.0 pg/mL (<=51)
[2025-03-12 21:05] LABS: ETHANOL BLOOD MEDICAL 0.0 gm% (0.00)
[2025-03-12] MEDS: Potassium Chloride 20 MEQ Tab.ER PO ONE (21:58)
== END 2025-03-12 22:00 | disposition home or self-care (01) ==
LOC: JD.ED 19:25
DX: G43.109 Migraine with aura, not intractable, without status migrainosus (principal); I10 Essential (primary) hypertension; Z86.16 Personal history of COVID-19; Z90.49 Acquired absence of other specified parts of digestive tract; Z91.048 Other nonmedicinal substance allergy status; Z79.899 Other long term (current) drug therapy
CPT/HCPCS: 36415; 80053; 80307; 83735; 83880; 84100; 84443; 84484; 85025; 85379; 93005; 99284; A9270; 99283